=== PATIENT | female | born 2005 | race Caucasian/White ===

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

== ENCOUNTER 2025-05-21 11:41 | Emergency (ER) | payer OTHER, SELFPAY ==
[2025-05-21 11:46] VITALS: BP 118/78; PULSE 93; TEMP 36.8; O2SAT 99; BMI 24.2
[2025-05-21 12:17] LABS: Glucose Urine UA NEGATIVE (NEGATIVE)
[2025-05-21 12:18] LABS: HCG Qualitative Urine* NEGATIVE (NEGATIVE)
--- OUTSIDE RECORDS SUMMARY | 2025-05-21 12:19 | XMS_ITS | CCD ---
Author Organization [facility] CliniSywa Care Team Providers Care Cnc Grinder Name Role Phone PROVIDER, UNKNOWN Unavailable Unavailable PROVIDER, UNKNOWN Unavailable Unavailable PATIENT, SELF Unavailable Unavailable NO FAMILY, PHYSICIAN Primary Care Provider Unava ilDO Juan Daniel Bellamy Attending Provider Lindsey Cates Primary Care Provider CAROLYN Butcher Emergency Provider Gayle King Unavailable TIFFANIE DURBIN Admitting Unavailable TIFFANIE DURBIN Attending Unavailable TIFFANIE DURBIN Consulting Unavailable AICHHOLZ, WINDOW DECORATOR LINDSEY Primary Care Unavailable MENG YBARRA Consulting Unavaila ble AICHHOLZ, WINDOW DECORATOR LINDSEY Primary Care Unavailable AICHHOLZ, WINDOW DECORATOR LINDSEY Admitting Unavailable AICHHOLZ, WINDOW DECORATOR LINDSEY Attending Unavailable AICHHOLZ, WINDOW DECORATOR LINDSEY Consulting Unavailable PAY ., DR SCOTT Admitting Unavailable SHERRILL, DR ALVAREZ Arnold Consulting Unavailable AICHHOLZ, WINDOW DECORATOR LINDSEY Primary Care Unavailable PAY ., DR SCOTT Attending Unavailable PAY ., DR SCOTT Consulting Unavailable KARINA .DENZEL Consulting Unavailable PAY ., DR SCOTT Admitting Unavailable AICHHOLZ, WINDOW DECORATOR LINDSEY Primary Care Unavailable KARINA .DENZEL Consulting Unavailable PAY ., DR SCOTT Attending Unavailable GEORGE HERNÁNDEZ Consulting Unavailable AICHHOLZ, LINDSEY J Primary Care Unavailable EULA MILLARD Attending Unavailable BETH OLIVAS Attending Unavailable BETH OLIVAS Referring Unavailable AICHHOLZ, LINDSEY J Primary Care Unavailable Aichholz, Lindsey J Primary Care Provider [phone] 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[employer] Mitali Reyez Emergency Provider Mitali Lucas Attending Unavailable Mitali Lucas Admitting Unavailable Aichholz, Lindsey J Primary Care Unavailable Medications Current Medications MedicationDrug Class(es)DatesSig (Normalized)Sig (Original)[id number] 200 actuat albuterol 0.09 mg/actuat metered dose inhaler (1 source)beta2-Adrenergic AgonistStart: 37-37-0167Iuwlnolpc Sulfate Active 2 INH INHALATION .every 4 hours prn April 24, 2024 12:00am administer with spaceramoxicillin 875 mg / clavulanate 125 mg oral tablet (4 sources)Penicillin-class AntibacterialStart: 04-07-4475mmxt 1 tablet by mouth every twelve hoursAmoxicillin-Pot Clavulanate 875-125 MG 1 tablet Orally every 12 hrs for 10 day(s) Jul, ActiveStart: 06-05-2017 End: 93-92-3570mzrs 1 tablet by mouth three times dailyAmoxicillin-Pot Clavulanate (Augmentin) 500-125 mg Tablet Discontinued 500 MG PO Three times daily June 05, 2017 1:00am June 19, 2019 10:10pmazithromycin 250 mg oral tablet (1 source)Macrolide AntimicrobialStart: 35-30-6093Vbpabcyqbkih Active 0 PO .COMPLEX 6 April 24, 2024 12:00am take 500 mg today (day 1), then 250 mg for 4 days (days 2-5)Cetirizine (1 source)Histamine-1 Receptor AntagonistZyrTEC ActiveNo Name (No Known Home Meds) (2 sources)Start: 10-48-2602Hg Name (No Known Home Meds) Active April 24, 2020 9:34pmStart: 72-28-9118Bu Name (No Known Home Meds) Active April 23, 2020 11:00pm Completed/Discontinued Medications MedicationDrug Class(es)DatesSig (Normalized)Sig (Original)acetaminophen 21.7 mg/ml / HYDROcodone bitartrate 0.5 mg/ml oral solution (3 sources)Opioid AgonistStart: 06-05-2017 End: 08-48-9620rzmy 1 mL by mouth four times dailyHydrocodone-Acetaminophen (Hycet) 7.5-325 mg/15 mL solution Discontinued 10 ML PO Four times daily 100 June 05, 2017 June 19, 2019 10:10pmibuprofen 600 mg oral tablet (4 sources)Nonsteroidal Anti-inflammatory DrugStart: 06-19-2019 End: 51-51-3627karc 600 mg by mouth every six hoursIbuprofen Discontinued 600 MG PO Q6H June 19, 2019 1:00am April 24, 2020 9:34pmIbuprofen Active Problems Active Problems Problem ClassificationProblemDateDocumented DateEpisodic/ChronicE Codes: Fall (1 source)Fall on same level, unspecified, initial encounter; Translations: [FALL SAME LEVEL UNSPECIFIED INITIAL]Onset: 21-26-5574ChzxveujFkvek of unknown origin (1 source)Fever, unspecified; Translations: [Fever, unspecified]Onset: 38-97-4065FbkgqekeZqvrnkjm of lower limb (4 sources)Fracture of fibula; Translations: [Unspecified fracture of shaft of right fibula, initial encounterfor closed fracture]Onset: EpisodicHeadache; including migraine (3 sources)Headache; including migraine; Translations: [HEADACHE UNSPECIFIED] Onset: 18-75-6038Lrhaw connective tissue disease (1 source)Pain in right hand; Translations: [Pain in right hand]Onset: 23-44-5040AnsphcrtVutwy connective tissue disease (1 source)Hand painOnset: 44-70-6173KsyfmjsiRiezu injuries and conditions due to external causes (1 source)Other specified injuries of head, initial encounter; Translations: [OTH SPEC INJURIES HEAD INITIAL ENC]Onset: 59-24-4519PrttnsyiIguav lower respiratory disease (1 source)Hyperventilation; Translations: [HYPERVENTILATION]Onset: 09-05-2022 EpisodicOther non-traumatic joint disorders (3 sources)Knee joint effusion; Translations: [Effusion, unspecified knee] 09-25-7825FdrlvowgYymrt upper respiratory infections (2 sources)Acute pharyngitis, unspecified; Translations: [Streptococcal pharyngitis]EpisodicPneumonia (except that caused by tuberculosis or sexually transmitted disease) (1 source)Pneumonia; Translations: [Pneumonia, unspecified organism]04-24-2024 EpisodicSuperficial injury; contusion (1 source)Contusion of right knee; Translations: [Contusion of right knee, subsequent encounter]EpisodicSyncope (10 sources)Vasovagal syncope; Translations: [Syncope and collapse]Onset: 841461-74-8540OcgllphaIofdjdirrqee (1 source)right hand injuryOnset: 73-17-7073Wexhsrrwumlt (1 source)Cough, unspecified; Translations: [Cough, unspecified]Onset: 04-24-2024 Past or Other Problems Problem ClassificationProblemDateDocumented DateEpisodic/ChronicAbdominal pain (4 sources)Right lower quadrant pain; Translations: [RIGHT LOWER QUADRANT PAIN] Onset: 48-04-8045WcmzyeuiI Codes: Natural/environment (1 source)Overexertion from prolonged static or awkward postures, initial encounter; Translations: [OVEREXERTPROLNG STAT/AWK PST INIT]Onset: 12-06-2021 EpisodicE Codes: Unspecified (1 source)Activity, basketball; Translations: [ACTIVITY BASKETBALL]Onset: 99-70-6994JzvzkbzbEoysw non-traumatic joint disorders (3 sources)Pain in right ankle and joints of right foot; Translations: [PAIN IN RIGHT ANKLE]Onset: 08-93-3612Tkihyaly Results Test NameValueInterpretationReference RangeFacilityCOVID-19 / Flu A/B / RSV PCR on 22-27-8010ZUSB-CoV-2 (COVID-19) RNA BOBBY+probe Ql (Unsp spec)COVID-19 Cepheid Result Negative for SARS-CoV-2 RNA by RT-PCR Flu A Cepheid Result Negative for Flu A RNA by RT-PCR Flu B Cepheid Result Negative for Flu B RNA by RT-PCR RSV Cepheid Result Negative for RSV RNA by RT-PCR COVID19 Blank Space Reference: Negative COVID19 Blank Space Cepheid Disclaimer The Cepheid Xpert Xpress CoV-2/Flu/RSV Plus has Cepheid Disclaimer not been FDA cleared or approved; this test has Cepheid Disclaimer been authorized by FDA under an EUA for use by Cepheid Disclaimer authorized laboratories; this test has been Cepheid Disclaimer authorized only for the simultaneous qualitative Cepheid Disclaimer detection and differentiation of nucleic acids from Cepheid Disclaimer SARS-CoV-2, influenza A, influenza B, and Cepheid Disclaimer respiratory syncytial virus (RSV), and not for any Cepheid Disclaimer other viruses or pathogens; and this test is only Cepheid Disclaimer authorized for the duration of the declaration that Cepheid Disclaimer circumstances exist justifying the authorization of Cepheid Disclaimer emergency use of in vitro diagnostic tests for Cepheid Disclaimer detection and/or diagnosis of COVID-19 under Cepheid Disclaimer Section 564(b)(1) of the Act, 21 U.S.C. 360bbb- Cepheid Disclaimer 3(b)(1), unless the authorization is terminated or Cepheid Disclaimer revoked sooner. PERFORMED BY: [place] [id number] PATHOLOGIST HEATING TECHNICIAN EVELIA NGUYEN M.D.NormalThe [facility] Physician GroupComment on above:Performed By: #### COVID19 FLU RSV, CEPHEID NEG #### [address] [address] [facility] HOSPITALCepheid COVID PCR Negativeon 40-79-0555EESH-CoV-2 (COVID- 19) RNA BOBBY+probe Ql (Unsp spec)NegativeNormalNegativeThe [facility] Physician GroupComment on above:Result Comment: This is a duplicate Cepheid Xpert Xpress CoV-2/Flu/RSV Plus RNA by RT-PCR result to be used for statistical tracking purpose only. PERFORMED BY: [address] [id number] PATHOLOGIST HEATING TECHNICIAN EVELIA NGUYEN M.D.Performed By: #### COVID19 FLU RSV, CEPHEID NEG #### [address] [address] USAECG 12 lead ECGon 22-32-3636BGI 12 lead ECGTR[facility]ITY [facility] [place] [address] Electrocardiograph Report Signed Patient: Haleigh Son MR#: [id number] : 2005 Acct:[id number] Age/Sex: 19 / F ADM Date: 04/24/24 Loc: ER Room: Type: [facility] ER Attending Dr: Ordering Provider: ADRI Murillo Date of Service: 04/24/2405/08/1737 ECG/ECG 12 lead ECG: Upper Respiratory Infection Copies to: Test Reason : Blood Pressure : 115/71 mmHG Vent. Rate : 91 BPM Atrial Rate : 91 BPM P-R Int : 128 ms QRS Dur : 84 ms QT Int : 362 ms P-R-T Axes : 81 97 73 degrees QTcB Int : 445 ms Normal sinus rhythm Rightward axis Borderline ECG When compared with ECG of 04-Sep-2022 18:57, No significant change was found Confirmed by ADRIAN MCMILLAN DO ([id number]) on 04/24/2024 10:56:37 PM Referred By: Electronically Signed By: ADRIAN MCMILLAN DO Transcribed By: MUS Signed By Adrian Mcmillan DO [address] [place] [address] Physician GroupXR chest 2V*on 04-02-8049OP chest 2V* [facility] [address] [place] [id number] XRay Report Signed Patient: Haleigh Son MR#: [id number] : 2005 Acct:[id number] Age/Sex: 19 / F ADM Date: 04/24/24 Loc: ER Room: Type: [facility] ER Attending Dr: Copies to: ADRI Murillo Ordering Provider: ADRI Murillo Date of Service: 04/24/24 XR/XR chest 2V*: Upper Respiratory Infection XR chest 2V* 04/24/2024 5:43 PM SIGNS AND SYMPTOMS: Chest tightness, upper respiratory tract infection PROTOCOL: Frontal and lateral radiograph of the chest COMPARISON: None FINDINGS: The trachea is midline. The heart and mediastinal structures are within normal limits. Airspace opacity is noted in the left upper chest suggesting pneumonia. The bony thorax is intact. XR/XR chest 2V* IMPRESSION: Airspace opacity is noted in the left upper chest suggesting pneumonia. Impression dictated by: Alexey Reyes M.D.04/24/2024 6:18 PM Dictation Location: [facility]--13 Transcribed By: KE 04/24/241817 Dictated By: Alexey Reyes II, MD 04/24/241816 Signed By: 04/24/241817[facility] Physician GroupXR HAND RT MIN 3 VWSon 34-52-6269KC HAND RT MIN 3 VWSXR HAND RT MIN 3 VWS XR HAND RT MIN 3 VWS HISTORY: Pain over the palm, caught baseball without mitt. COMPARISON: None FINDINGS/IMPRESSION: PA, oblique, lateral views obtained. * No acute fracture or dislocation. Approved by Resident Quintin Sanchez MD on 11/28/2023 10:08 PM I, Ole Christianson MD have personally reviewed the image(s) and agree with and/or edited the report Finalized by Ole Christianson MD on 11/28/2023 10:21 PMNormalProMatagorda Regional Medical CenterGlucose Glucometer (BldC) [Mass/Vol]Ordered By: PROVIDER TEMP on 27-95-6547Owrzxkr [Mass/Vol]82 mg/dLMemorial Health SystemComment on above:Random Glucose Reference Range is dependent on time and content of last meal. Glucose of more than 200 mg/dL in a nonstressed, ambulatory subject supports the diagnosis of Diabetes Mellitus.CBC AUTO DIFFon 25-17-4854WZGS #0.0 103/ulNormal0.0-0.1The [facility] CenterComment on above:Performed By: #### FT3, TSH, CMP #### [facility] [address] [place] [address] [address] Emilia Hestersophils/100 WBC (Bld)0.2 %Normal0.2-2.0The [facility] Comment on above:Performed By: #### FT3, TSH, CMP #### [facility] [address] [place] [address] Dr. Emilia Dupree #0.1 103/ulNormal0.0-0.7The [facility] CenterComment on above: Performed By: #### FT3, TSH, CMP #### [facility] [address] [place] [address] Dr. Emilia Mortonosinophils/100 WBC (Bld)2.1 %Normal0.9-7.0The [facility] Comment on above:Performed By: #### FT3, TSH, CMP #### [facility] [address] [place] [address] Dr. Emilia Mortonrythrocyte distribution width (RBC) [Ratio]12.7 %Iughou98.0-15.0 The [facility] Medical CenterComment on above:Performed By: #### FT3, TSH, CMP #### [facility] [address] [place] [address] Dr. Emilia MtzHematocrit (Bld) [Volume fraction]36.6 %Jwybrx66.0-48.0The [facility] CenterComment on above:Performed By: #### FT3, TSH, CMP #### [facility] [address] [place] [address] Dr. Emilia MtzHemoglobin (Bld) [Mass/Vol]12.3 g/xLBjojbu52.0-16.0The [facility] CenterComment on above:Performed By: #### FT3, TSH, CMP #### [facility] [address] [place] [address] Dr. Emilia Draper #0.01 10e3/ulNormal0.00-0.03The [facility] CenterComment on above:Performed By: #### FT3, TSH, CMP #### [facility] [address] [place] [address] Dr. Emilia MtzIG %0.2 %Normal0.0-0.5The [facility] CenterComment on above: Performed By: #### FT3, TSH, CMP #### [facility] [address] [place] [address] Dr. Emilia Canales #2.1 103/ulNormal1.2-3.8The [facility] CenterComment on above:Performed By: #### FT3, TSH, CMP #### [facility] [address] [place] [address] Dr. Emilia Aguillonhocytes/100 WBC (Bld)37.1 %Ouljrl81.5-60.0The [facility] CenterComment on above:Performed By: #### FT3, TSH, CMP #### [facility] [address] [place] [address] Dr. Emilia Orr DIFF REQNONormalThe [facility] CenterComment on above: Performed By: #### FT3, TSH, CMP #### [facility] [address] [place] [address] Dr. Emilia Hernandez (RBC) [Entitic mass]29.4 teTkkgxl35.7-34.0The [facility] CenterComment on above:Performed By: #### FT3, TSH, CMP #### [facility] [address] [place] [address] Dr. Emilia Thacker (RBC) [Mass/Vol]33.6 g/aXJxuklr18.9-35.2The [facility] Hospitalment on above:Performed By: #### FT3, TSH, CMP #### [facility] [address] [place] [address] Dr. Emilia Thacker (RBC) [Entitic vol]87.6 bCGpspcx08.1-95.6The [facility] CenterComment on above:Performed By: #### FT3, TSH, CMP #### [facility] [address] [place] [address] Dr. Emilia Plata #0.4 103/ulNormal0.3-0.8The [facility] CenterComment on above:Performed By: #### FT3, TSH, CMP #### [facility] [address] [place] [address] Dr. Emilia Tangocytes/100 WBC (Bld)6.1 %Normal1.7-12.0The [facility] Comment on above:Performed By: #### FT3, TSH, CMP #### [facility] [address] [place] [address] Dr. Emilia LincolnUT #3.1 103/ulNormal1.4-6.5The [facility] CenterComment on above:Performed By: #### FT3, TSH, CMP #### [facility] [address] [place] [address] Dr. Emilia Lincolnutrophils/100 WBC (Bld)54.3 %Jzzujc41.0-75.0The [facility] CenterComment on above:Performed By: #### FT3, TSH, CMP #### [facility] [address] [place] [address] Dr. Emilia MtzPlatelet mean volume (Bld) [Entitic vol]11.6 fLNormal9.5-13.5The [facility] CenterComment on above:Performed By: #### FT3, TSH, CMP #### [facility] [address] [place] [address] Dr. Emilia MtzPLT246 103/uwKhbick013-837Qnf [facility] CenterComment on above: Performed By: #### FT3, TSH, CMP #### [facility] [address] [place] [address] Dr. Emilia MtzRBC4.18 106/ulNormal3.40-5.30The [facility] CenterComment on above:Performed By: #### FT3, TSH, CMP #### [facility] [address] [place] [address] Dr. Emilia MtzWBC5.7 103/ulNormal4.0-11.0The [facility] CenterComment on above: Performed By: #### FT3, TSH, CMP #### [facility] [address] [place] [address] Dr. Emilia MtzCT HEAD WO CONon 63-17-2659PX HEAD WO CONEXAMINATION: CT HEAD WO CON HISTORY: Syncopal episode after dragging left leg, headache COMPARISON: None. TECHNIQUE: CT examination of the head without IV contrast. Dose reduction techniques were achieved by using automated exposure control and/or adjustment of mA and/or kV according to patient size and/or use of iterative reconstruction technique. FINDINGS: Calvarium/skull base: No evidence of acute fracture or destructive lesion. Mastoids and middle ears demonstrate no substantial mucosal disease. Paranasal sinuses: No air fluid levels. Brain: No acute intracranial hemorrhage. No acute large vascular territory infarct. No mass lesion or mass effect. No hydrocephalus. IMPRESSION: No acute intracranial process. Electronically authenticated by: MENG YBARRA Date: 2022-09-03 11:37 NormalSelect [facility] URINE PROFILEon 25-39-3662Biaopzcwq Ql (U)Negative NormalNEGATIVEVan Wert County HospitalComment on above:Performed By: #### FT3, TSH, CMP #### [facility] [address] [place] [address] Dr. Emilia MtzClarity (U)CLEARNormalCLEARVan Wert County HospitalComment on above: Performed By: #### FT3, TSH, CMP #### [facility] [address] [place] [address] Dr. Emilia Damon (U)LT. YELLOWNormalYELLOWVan Wert County HospitalComment on above:Performed By: #### FT3, TSH, CMP #### [facility] [address] [place] [address] Dr. Emilia Spivey micrscopic examination will be performed if indicated. NormalVan Wert County HospitalComment on above:Performed By: #### FT3, TSH, CMP #### [facility] [address] [place] [address] [address] Emilia MtzGlucose Ql (U)NegativeNormalNEGATIVEVan Wert County HospitalComment on above:Performed By: #### FT3, TSH, CMP #### [facility] [address] [place] [address] [address] Emilia MtzHemoglobin Ql (U)NegativeNormalNEGATIVEVan Wert County Hospital Comment on above:Performed By: #### FT3, TSH, CMP #### [facility] [address] [place] [address] [address] Emilia Houston Ql (U)NegativeNormalNEGATIVEThe [facility] CenterComment on above:Performed By: #### FT3, TSH, CMP #### [facility] [address] [place] [address] [address] Emilia MtzLEUKOCYTESNegativeNormalNEGATIVEVan Wert County HospitalComment on above:Performed By: #### FT3, TSH, CMP #### [facility] [address] [place] [address] Dr. Emilia Heathtrkonrad Ql (U)NegativeNormalNEGATIVEThe [facility] CenterComment on above:Performed By: #### FT3, TSH, CMP #### [facility] [address] [place] [address] Dr. Emilia MtzpH (U)5.5 [pH]Normal5-9The [facility] CenterComment on above: Performed By: #### FT3, TSH, CMP #### [facility] [address] [place] [address] Dr. Emilia MtzSPEC GRAVITY>=1.740Ftxyxtds7.005-<=1.025The [facility] Comment on above:Performed By: #### FT3, TSH, CMP #### [facility] [address] [place] [address] Dr. Emilia Mccallum PROTEINNegativeNormalNEGATIVE/ TRACEThe [facility] Comment on above:Performed By: #### FT3, TSH, CMP #### [facility] [address] [place] [address] Dr. Emilia Frye MICRO INDNOT INDICATEDNoOhioHealth Riverside Methodist Hospitale [facility] CenterComment on above:Performed By: #### FT3, TSH, CMP #### [facility] [address] [place] [address] Dr. Emilia Raygoza Qn (U)0.2 {[place]'U}/dLNormal0.2 - 1.0The [facility] CenterComment on above:Performed By: #### FT3, TSH, CMP #### [facility] [address] [address] [address] Emilia MtzPREGNANCY URon 89-92-5361CTPTGIIGQ, QUALNegativeNormalNEGATIVEThe [facility] CenterComment on above:Performed By: #### FT3, TSH, CMP #### [facility] [address] [place] [address] [address] Emilia MtzPROF 14(COMP METB)on 99-22-2987Bkjcygb [Mass/Vol]3.9 g/dLNormal 3.4-5.0The [facility] CenterComment on above:Performed By: #### CMP #### [facility] [address] [place] [address] Dr. Emilia MtzAlbumin/Globulin [Mass ratio]1.1 {ratio}NormalThe [facility] CenterComment on above:Performed By: #### CMP #### [facility] [address] [place] [address] Dr. Emilia CheP [Catalytic activity/Vol]66 U/VRcszoe65-630Xyx [facility] CenterComment on above:Performed By: #### CMP #### [facility] [address] [place] [address] Dr. Emilia CheT [Catalytic activity/Vol]14 U/BWxnthk47-31Cts [facility] CenterComment on above:Performed By: #### CMP #### [facility] [address] [place] [address] Dr. Emilia Bal gap [Moles/Vol]10.9 mmol/LNormalThe [facility] Comment on above:Performed By: #### CMP #### [facility] [address] [place] [address] Dr. Emilia MtzAST [Catalytic activity/Vol]14 U/LCritically hsk76-74Wpz [facility] CenterComment on above:Performed By: #### CMP #### [facility] [address] [place] [address] Dr. Emilia MtzBilirubin [Mass/Vol]0.4 mg/dLNormal0.2-1.0The [facility] Comment on above:Performed By: #### CMP #### [facility] [address] [address] [address] Emilia MtzCalcium [Mass/Vol]9.4 mg/dLNormal8.5-10.1The [facility] Comment on above:Performed By: #### CMP #### [facility] [address] [address] [address] Emilia MtzChloride [Moles/Vol]107 mmol/VGsaxmd79-693Qxp [facility] Comment on above:Performed By: #### CMP #### [facility] [address] [address] [address] Emilia MtzCO2 [Moles/Vol]26.2 mmol/GQvtzpi89.0-32.0The [facility] Comment on above:Performed By: #### CMP #### [facility] [address] [place] [address] Dr. Emilia MtzCreatinine [Mass/Vol]0.71 mg/dLNormal0.55-1.02The [facility] CenterComment on above:Performed By: #### CMP #### [facility] [address] [address] [address] Emilia MortonGFR-AF CAMEROONIAN>60Normal>=60The [facility] CenterComment on above:Performed By: #### CMP #### [facility] [address] [address] [address] Emilia MortonGFR-NON AF CAMEROONIAN>60Normal>=60The [facility] CenterComment on above:Performed By: #### CMP #### [facility] [address] [address] [address] Emilia MtzGlobulin (S) [Mass/Vol]3.5 g/dLNormalThe [facility] CenterComment on above:Performed By: #### CMP #### [facility] [address] [address] [address] Emilia MtzGlucose [Mass/Vol]103 mg/jRTrctac99-530Iqs [facility] Comment on above:Performed By: #### CMP #### [facility] [address] [address] [address] Emilia MtzPotassium [Moles/Vol]4.1 mmol/LNormal3.5-5.1The [facility] Comment on above:Performed By: #### CMP #### [facility] [address] [address] [address] Emilia MtzProtein [Mass/Vol]7.4 g/dLNormal6.4-8.2The [facility] Comment on above:Performed By: #### CMP #### [facility] [address] [address] [address] Emilia MtzSodium [Moles/Vol]140 mmol/VOspwqo366-499Wqu [facility] Comment on above:Performed By: #### CMP #### [facility] Laboratory [address] [address] [address] Emilia MtzUrea nitrogen [Mass/Vol]15.0 mg/dLNormal6.4-19.3The [facility] CenterComment on above:Performed By: #### CMP #### [facility] [address] [address] [address] Emilia Duran nitrogen/Creatinine [Mass ratio]21.1 mg/mgNoalThMetroHealth Parma Medical CenterComment on above:Performed By: #### CMP #### [facility] Laboratory [address] [address] [address] Emilia Barber Strepon 08-15-2022S. pyogenes Org specific cx Ql (Throat) [facility]Con[facility] Other Quick StrepAthens dineout Other cbc AUTO DIFFon 20-20-7476ZNTA #0.0 103/ulNormal 0.0-0.1The [facility] CenterComment on above:Performed By: #### CBC #### [facility] Laboratory [address] [address] [address] Emilia MtzBasophils/100 WBC (Bld)0.2 %Normal0.2-2.0The [facility] Comment on above:Performed By: #### CBC #### [facility] Laboratory [address] [address] [address] Emilia Dupree #0.2 103/ulNormal0.0-0.7The [facility] CenterComment on above: Performed By: #### CBC #### [facility] Laboratory [address] [place] [address] Dr. Emilia Mortonosinophils/100 WBC (Bld)1.6 %Normal0.9-7.0The [facility] Comment on above:Performed By: #### CBC #### [facility] Laboratory [address] [place] [address] Dr. Emilia Mortonrythrocyte distribution width (RBC) [Ratio]12.6 %Fvgued36.0-15.0 The [facility] Hospitalment on above:Performed By: #### CBC #### [facility] Laboratory [address] [place] [address] Dr. Emilia MtzHematocrit (Bld) [Volume fraction]36.1 %Tcelnx34.0-48.0The [facility] CenterComment on above:Performed By: #### CBC #### [facility] Laboratory [address] [place] [address] Dr. Emilia MtzHemoglobin (Bld) [Mass/Vol]12.3 g/cTQsrbwo43.0-16.0The [facility] Hospitalment on above:Performed By: #### CBC #### [facility] Laboratory [address] [place] [address] Dr. Emilia Draper #0.03 10e3/ulNormal0.00-0.03The [facility] CenterComment on above:Performed By: #### CBC #### [facility] Laboratory [address] [place] [address] Dr. Emilia Draper %0.3 %Normal0.0-0.5The [facility] Hospitalment on above: Performed By: #### CBC #### [facility] Laboratory [address] [place] [address] Dr. Emilia Canales #1.8 103/ulNormal1.2-3.8The [facility] CenterComment on above:Performed By: #### CBC #### [facility] Laboratory [address] [address] [address] Emilia Kamaramphocytes/100 WBC (Bld)19.3 %Critically low20.5-60.0The [facility] CenterComment on above:Performed By: #### CBC #### [facility] Laboratory [address] [address] [address] Emilia Orr DIFF REQNONormalThe [facility] CenterComment on above: Performed By: #### CBC #### [facility] Laboratory [address] [address] [address] Emilia Thacker (RBC) [Entitic mass]29.2 qwAhycgv67.7-34.0The [facility] CenterComment on above:Performed By: #### CBC #### [facility] Laboratory [address] [place] [address] Dr. Emilia Thacker (RBC) [Mass/Vol]34.1 g/zBEdbzsf81.9-35.2The [facility] CenterComment on above:Performed By: #### CBC #### [facility] Laboratory [address] [place] [address] Dr. Emilia Thacker (RBC) [Entitic vol]85.7 dYWdncit85.1-95.6The [facility] CenterComment on above:Performed By: #### CBC #### [facility] Laboratory [address] [place] [address] Dr. Emilia Plata #0.5 103/ulNormal0.3-0.8The [facility] Hospitalment on above:Performed By: #### CBC #### [facility] Laboratory [address] [place] [address] Dr. Emilia Tangocytes/100 WBC (Bld)5.0 %Normal1.7-12.0The [facility] on above:Performed By: #### CBC #### [facility] Laboratory [address] [place] [address] Dr. Emilia Juarez #6.9 103/ulCritically high1.4-6.5The [facility] Comment on above:Performed By: #### CBC #### [facility] Laboratory [address] [place] [address] Dr. Emilia Lincolnutrophils/100 WBC (Bld)73.6 %Pkcbiu48.0-75.0The [facility] CenterComment on above:Performed By: #### CBC #### [facility] Laboratory [address] [place] [address] Dr. Emilia MtzPlatelet mean volume (Bld) [Entitic vol]10.9 fLNormal9.5-13.5The [facility] CenterComment on above:Performed By: #### CBC #### [facility] Laboratory [address] [place] [address] Dr. Emilia MtzPLT257 103/geZaxesk032-920Yvk [facility] CenterComment on above: Performed By: #### CBC #### [facility] Laboratory [address] [place] [address] Dr. Emilia MtzRBC4.21 106/ulNormal3.40-5.30The [facility] CenterComment on above:Performed By: #### CBC #### [facility] Laboratory [address] [place] [address] Dr. Emilia MtzWBC9.4 103/ulNormal4.0-11.0The [facility] CenterComment on above: Performed By: #### CBC #### [facility] Laboratory [address] [place] [address] Dr. Emilia Archer T3on 15-47-2046YPNH T32.43 pg/mlLCritically low2.91-4.70The [facility] CenterComment on above:Performed By: #### FT3, TSH, CMP #### [facility] Laboratory [address] [place] [address] Dr. Emilia Archer T4on 65-55-7880Qqtc T4 [Mass/Vol]1.07 ng/dLNormal0.78-1.34 The [facility] CenterComment on above:Performed By: #### IRON, FT4 #### [facility] Laboratory [address] [place] [address] Dr. Emilia Leone 66-24-9387Tsgq [Mass/Vol]58.0 ug/lGXuokiu63.0-170.0The [facility] CenterComment on above:Performed By: #### IRON, FT4 #### [facility] Laboratory [address] [place] [address] Dr. Emilia Arteaga HCG QUALon 21-17-9972ZZOXZWVLC, QUALNegativeNormalNEGATIVE The [facility] CenterComment on above:Performed By: #### FT3, TSH, CMP #### [facility] Laboratory [address] [place] [address] Dr. Emilia MtzPROF 14(COMP METB)on 00-41-7614Ezenhvi [Mass/Vol]3.8 g/dLNormal 3.4-5.0The [facility] CenterComment on above:Performed By: #### FT3, TSH, CMP #### [facility] Laboratory [address] [place] [address] Dr. Emilia MtzAlbumin/Globulin [Mass ratio]1.1 {ratio}NormalThe [facility] CenterComment on above:Performed By: #### FT3, TSH, CMP #### [facility] Laboratory [address] [place] [address] Dr. Emilia Daigle [Catalytic activity/Vol]79 U/CVjuveq20-361Glu [facility] CenterComment on above:Performed By: #### FT3, TSH, CMP #### [facility] Laboratory [address] [place] [address] Dr. Emilia Ortiz [Catalytic activity/Vol]14 U/IXtnmyr93-78Stu [facility] CenterComment on above:Performed By: #### FT3, TSH, CMP #### [facility] Laboratory [address] [place] [address] Dr. Emilia Bal gap [Moles/Vol]11.7 mmol/LNormalThe [facility] on above:Performed By: #### FT3, TSH, CMP #### [facility] Laboratory [address] [place] [address] Dr. Yilan ChangAST [Catalytic activity/Vol]15 U/CYliyvf66-47DbkVan Wert County HospitalComment on above:Performed By: #### FT3, TSH, CMP #### [facility] Laboratory [address] [place] [address] Dr. Emilia MtzBilirubin [Mass/Vol]0.3 mg/dLNormal0.2-1.0[facility] Comment on above:Performed By: #### FT3, TSH, CMP #### [facility] [address] [place] [address] Dr. Emilia MtzCalcium [Mass/Vol]9.4 mg/dLNormal8.5-10.1[facility] Comment on above:Performed By: #### FT3, TSH, CMP #### [facility] [address] [place] [address] Dr. Emilia MtzChloride [Moles/Vol]104 mmol/QSykpcs69-626XogVan Wert County Hospital Comment on above:Performed By: #### FT3, TSH, CMP #### [facility] [address] [place] [address] Dr. Emilia MtzCO2 [Moles/Vol]27.2 mmol/FZntqix54.0-32.0[facility] Comment on above:Performed By: #### FT3, TSH, CMP #### [facility] Laboratory [address] [place] [address] Dr. Emilia MtzCreatinine [Mass/Vol]0.58 mg/dLNormal0.55-1.02[facility] HospitalComment on above:Performed By: #### FT3, TSH, CMP #### [facility] Laboratory [address] [place] [address] Dr. Emliia MtzGlobulin (S) [Mass/Vol]3.4 g/dLNormalThe [facility] CenterComment on above:Performed By: #### FT3, TSH, CMP #### [facility] Laboratory [address] [place] [address] Dr. Emilia MtzGlucose [Mass/Vol]86 mg/wRPyrrvt06-193AxeVan Wert County Hospital Comment on above:Performed By: #### FT3, TSH, CMP #### [facility] Laboratory [address] [place] [address] Dr. Emilia MztPotassium [Moles/Vol]3.9 mmol/LNormal3.5-5.1The [facility] Comment on above:Performed By: #### FT3, TSH, CMP #### [facility] Laboratory [address] [place] [address] Dr. Emilia MtzProtein [Mass/Vol]7.2 g/dLNormal6.4-8.2The [facility] Comment on above:Performed By: #### FT3, TSH, CMP #### [facility] Laboratory [address] [place] [address] Dr. Emilia MtzSodium [Moles/Vol]139 mmol/KRtdife812-444Kku [facility] Comment on above:Performed By: #### FT3, TSH, CMP #### [facility] Laboratory [address] [place] [address] Dr. Emilia MtzUrea nitrogen [Mass/Vol]13.0 mg/dLNormal6.4-19.3The [facility] CenterComment on above:Performed By: #### FT3, TSH, CMP #### [facility] Laboratory [address] [place] [address] Dr. Emilia Duran nitrogen/Creatinine [Mass ratio]22.4 mg/mgNormalThe [facility] CenterComment on above:Performed By: #### FT3, TSH, CMP #### [facility] Laboratory [address] [place] [address] Dr. Emilia Gordon 22-70-3283ZDC7.840 uIU/mLNormal0.516-4.130The [facility] CenterComment on above:Performed By: #### FT3, TSH, CMP #### [facility] Laboratory [address] [place] [address] Dr. Emilia Mccallum RANDOM W/MICROSCOPICon 57-01-3807ONOWHJMEOVLVLRxieyfnoSCKT SEENThe [facility] CenterComment on above:Performed By: #### FT3, TSH, CMP #### [facility] Laboratory [address] [address] [address] Emilia MtzBilirubin Ql (U)NegativeNormalNEGATIVEUniversity Hospitals Tripoint [facility] on above:Performed By: #### FT3, TSH, CMP #### [facility] Laboratory [address] [address] [address] Emilia MtzCASTNONAissatou SEENNormalNONE SEENVan Wert County HospitalComment on above:Performed By: #### FT3, TSH, CMP #### [facility] Laboratory [address] [address] [address] Emilia MtzClarity (U)CLEARNormalCLEARVan Wert County HospitalComment on above: Performed By: #### FT3, TSH, CMP #### [facility] Laboratory [address] [place] [address] Dr. Emilia Loaizalor (U)LT. YELLOWNormalYELLOWVan Wert County HospitalComment on above:Performed By: #### FT3, TSH, CMP #### [facility] Laboratory [address] [address] [address] Emilia MtzCrystals LM Nom (Urine sed)NONE SEENNormalNONE SEENVan Wert County HospitalComment on above:Performed By: #### FT3, TSH, CMP #### [facility] Laboratory [address] [place] [address] Dr. Nieto ChangEpithelial cells LM Ql (Urine sed)FEWAbnormalNONE SEEN /RAREThe [facility] CenterComment on above:Performed By: #### FT3, TSH, CMP #### [facility] Laboratory [address] [place] [address] Dr. Emilia MtzGlucose Ql (U)NegativeNormalNEGATIVEVan Wert County HospitalComment on above:Performed By: #### FT3, TSH, CMP #### [facility] Laboratory [address] [place] [address] Dr. Emilia MtzHemoglobin Ql (U)TRACE-INTACTAbnormalNEGATIVEVan Wert County HospitalComment on above:Performed By: #### FT3, TSH, CMP #### [facility] [address] [place] [address] Dr. Emilia Houston Ql (U)NegativeNormalNEGATIVEVan Wert County HospitalComment on above:Performed By: #### FT3, TSH, CMP #### [facility] Laboratory [address] [address] [address] Emilia MtzLEUKOCYTESNegativeNormalNEGATIVEThe [facility] CenterComment on above:Performed By: #### FT3, TSH, CMP #### [facility] Laboratory [address] [address] [address] Emilia HajiCOUSTRACEAbnormalNONE SEENThe [facility] CenterComment on above:Performed By: #### FT3, TSH, CMP #### [facility] Laboratory [address] [place] [address] Dr. Emilia Lema Ql (U)NegativeNormalNEGATIVEVan Wert County HospitalComment on above:Performed By: #### FT3, TSH, CMP #### [facility] [address] [place] [address] Dr. Emilia MtzpH (U)7.0 [pH]Normal5-9The [facility] CenterComment on above: Performed By: #### FT3, TSH, CMP #### [facility] Laboratory [address] [place] [address] Dr. Emilia MtzTbxlhKRY3-6Thymgy6-1[facility] on above:Performed By: #### FT3, TSH, CMP #### [facility] Laboratory [address] [place] [address] Dr. Emilia MtzSPEC GRAVITY1.633Qzehwh4.005-<=1.025[facility] on above:Performed By: #### FT3, TSH, CMP #### [facility] Laboratory [address] [address] [address] Emilia Mccallum PROTEINNegativeNormalNEGATIVE/ TRACEThe [facility] on above:Performed By: #### FT3, TSH, CMP #### [facility] Laboratory [address] [place] [address] Dr. Emilia Sanfordbilaster Qn (U)0.2 {Cuba'U}/dLNormal0.2 - 1.0The [facility] CenterComment on above:Performed By: #### FT3, TSH, CMP #### [facility] Laboratory [address] [place] [address] Dr. Emilia MtzWBCNONE SEENNormalNONE SEENThe [facility] CenterComment on above: Performed By: #### FT3, TSH, CMP #### [facility] Laboratory [address] [place] [address] Dr. Emilia Rosa AUTO DIFFon 69-48-6661RBMM #0.0 103/ulNormal0.0-0.1The [facility] CenterComment on above:Performed By: #### CBC #### [facility] Laboratory [address] [place] [address] Dr. Emilia MtzBasophils/100 WBC (Bld)0.4 %Normal0.2-2.0The [facility] Comment on above:Performed By: #### CBC #### [facility] Laboratory [address] [place] [address] Dr. Emilia Dupree #0.1 103/ulNormal0.0-0.7The [facility] CenterComtrinity [facility] on above: Performed By: #### CBC #### [facility] Laboratory [address] [place] [address] Dr. Emilia Mortonosinophils/100 WBC (Bld)1.7 %Normal0.9-7.0The [facility] Comment on above:Performed By: #### CBC #### [facility] Laboratory [address] [place] [address] Dr. Emilia Mortonrythrocyte distribution width (RBC) [Ratio]13.0 %Upqnrn16.0-15.0 The [facility] CenterComment on above:Performed By: #### CBC #### [facility] Laboratory [address] [place] [address] Dr. Emilia MtzHematocrit (Bld) [Volume fraction]38.1 %Jogtpi65.0-48.0The [facility] CenterComment on above:Performed By: #### CBC #### [facility] [address] [place] [address] Dr. Emilia MtzHemoglobin (Bld) [Mass/Vol]12.8 g/yPPcwvgd25.0-16.0The [facility] CenterComment on above:Performed By: #### CBC #### [facility] [address] [place] [address] Dr. Emilia Draper #0.02 10e3/ulNormal0.00-0.03The [facility] CenterComment on above:Performed By: #### CBC #### [facility] [address] [place] [address] Dr. Emilia Draper %0.2 %Normal0.0-0.5The [facility] CenterComment on above: Performed By: #### CBC #### [facility] [address] [place] [address] Dr. Emilia Canales #2.5 103/ulNormal1.2-3.8The [facility] CenterComment on above:Performed By: #### CBC #### [facility] Laboratory [address] [place] [address] Dr. Emilia Aguillonhocytes/100 WBC (Bld)30.2 %Ijabdg03.5-60.0The [facility] CenterComtrinity health [facility] on above:Performed By: #### CBC #### [facility] Laboratory [address] [place] [address] Dr. Emilia ScottUAL DIFF REQNONormalThe [facility] CenterComment on above: Performed By: #### CBC #### [facility] Laboratory [address] [place] [address] Dr. Emilia Thacker (RBC) [Entitic mass]29.3 muQoazez81.7-34.0The [facility] CenterComment on above:Performed By: #### CBC #### [facility] Laboratory [address] [place] [address] Dr. Emilia Thacker (RBC) [Mass/Vol]33.6 g/yWNiguob04.9-35.2The [facility] CenterComment on above:Performed By: #### CBC #### [facility] Laboratory [address] [place] [address] Dr. Emilia ThackerV (RBC) [Entitic vol]87.2 tRThlhae14.1-95.6The [facility] CenterComment on above:Performed By: #### CBC #### [facility] [address] [place] [address] Dr. Emilia Plata #0.5 103/ulNormal0.3-0.8The [facility] CenterComment on above:Performed By: #### CBC #### [facility] [address] [place] [address] Dr. Emilia Tangocytes/100 WBC (Bld)5.6 %Normal1.7-12.0The [facility] Comment on above:Performed By: #### CBC #### [facility] [address] [place] [address] Dr. Emilia Juarez #5.1 103/ulNormal1.4-6.5The [facility] CenterComment on above:Performed By: #### CBC #### [facility] [address] [place] [address] Dr. Emilia Lincolnutrophils/100 WBC (Bld)61.9 %Fkoycr16.0-75.0The [facility] CenterComment on above:Performed By: #### CBC #### [facility] [address] [place] [address] Dr. Emilia Griffinlet mean volume (Bld) [Entitic vol]12.0 fLNormal9.5-13.5The [facility] CenterComment on above:Performed By: #### CBC #### [facility] [address] [place] [address] Dr. Emilia MtzPLT251 103/bjIxegfr243-828Gcs [facility] CenterComment on above: Performed By: #### CBC #### [facility] [address] [place] [address] Dr. Emilia MtzRBC4.37 106/ulNormal3.40-5.30The [facility] CenterComment on above:Performed By: #### CBC #### [facility] Laboratory [address] [address] [address] Emilia MtzWBC8.2 103/ulNormal4.0-11.0The [facility] Hospitalment on above: Performed By: #### CBC #### [facility] [address] [place] [address] Dr. Emilia MtzCT ABD/PELVIS WO CONon 31-54-6967VZ ABD/PELVIS WO CONEXAMINATION: CT ABD/PELVIS WO CON, 03/21/2022 2:00 PM EDT HISTORY: UNSPECIFIED ABDOMINAL PAIN COMPARISON: None. TECHNIQUE: CT scan of the abdomen and pelvis was performed without IV contrast. CT dose reduction technique was used, including Automated Exposure Control. FINDINGS: LUNG BASES: No visible pulmonary or pleural disease. LIVER: No enlargement, atrophy, abnormal density, or significant focal lesion. BILIARY: No dilatation or calcification. PANCREAS: No lesion, fluid collection, ductal dilatation, or atrophy. SPLEEN: No enlargement or focal lesion. ADRENALS: No mass or enlargement. KIDNEYS: No mass, obstruction, or calcification. BOWEL/MESENTERY: No visible mass, obstruction, or bowel wall thickening. AORTA/VASCULAR: No aneurysm or dissection. RETROPERITONEUM: No mass or adenopathy. LYMPH NODES: No adenopathy. URINARY BLADDER: No visible focal wall thickening, lesion, or calculus. PELVIC ORGANS: No visible mass. Pelvic organs appropriate for patient age. ABDOMINAL WALL: No mass or hernia. BONES: No bony lesion or fracture. OTHER: Negative. IMPRESSION: No obstructive uropathy Electronically authenticated by: ALVAREZ GIL Date: 2022-03-21 14:32NormCleveland Clinic Foundation URINE PROFILEon 49-53-8943Cujlwndkk Ql (U)NegativeNormal NEGATIVEThe [facility] on above:Performed By: #### ERUR #### [facility] [address] [place] [address] Dr. Emilia Roblero (U)CLEARNormalCLEARThe [facility] on above: Performed By: #### ERUR #### [facility] [address] [place] [address] Dr. Emilia Damon (U)YELLOWNormalYELLOWThe [facility] CenterComment on above: Performed By: #### ERUR #### [facility] [address] [address] [address] Emilia Spivey micrscopic examination will be performed if indicated. NormalVan Wert County HospitalComment on above:Performed By: #### ERUR #### [facility] [address] [place] [address] Dr. Emilia MtzGlucose Ql (U)NegativeNormalNEGATIVEVan Wert County HospitalComment on above:Performed By: #### ERUR #### [facility] [address] [place] [address] Dr. Emilia MtzHemoglobin Ql (U)NegativeNormalNEGAultman Orrville Hospital Comment on above:Performed By: #### ERUR #### [facility] [address] [place] [address] Dr. Emilia MtzKetones Ql (U)TRACEAbnormalNEGATIVEVan Wert County HospitalComment on above:Performed By: #### ERUR #### [facility] [address] [place] [address] Dr. Emilia MtzLEUKOCYTESNegativeNormalNEGATIVEVan Wert County HospitalComment on above:Performed By: #### ERUR #### [facility] [address] [place] [address] Dr. Emilia MtzNitrite Ql (U)NegativeNormalNEGATIVEVan Wert County HospitalComment on above:Performed By: #### ERUR #### [facility] [address] [place] [address] Dr. Emilia MtzpH (U)5.5 [pH]Normal5-9Van [facility] HospitalComment on above: Performed By: #### ERUR #### [facility] [address] [place] [address] Dr. Emilia MtzSPEC GRAVITY>=1.750Zynqqevh8.005-<=1.025[facility] Comment on above:Performed By: #### ERUR #### [facility] [address] [place] [address] Dr. Emilia MtzUA PROTEINNegativeNormalNEGATIVE/ TRACEThe [facility] Comment on above:Performed By: #### ERUR #### [facility] [address] [place] [address] Dr. Emilia Frye MICRO INDNOT INDICATEDNormalThe [facility] CenterComment on above:Performed By: #### ERUR #### [facility] [address] [place] [address] Dr. Emilia MtzUrobilinogen Qn (U)0.2 {Cuba'U}/dLNormal0.2 - 1.0The [facility] CenterComment on above:Performed By: #### ERUR #### [facility] [address] [place] [address] Dr. Emilia MtzLACTATE/LACTIC ACIDon 33-28-1898Vjdvqgk [Moles/Vol]0.8 mmol/L Normal0.4-1.9The [facility] CenterComment on above:Performed By: #### FT3, TSH, CMP #### [facility] [address] [place] [address] Dr. Emilia MtzLIPASEon 27-87-2440Maqeof [Catalytic activity/Vol]114.0 U/LNormal 73.0-393.0The [facility] CenterComment on above:Performed By: #### FT3, TSH, CMP #### [facility] [address] [place] [address] Dr. Emilia MtzPROF 14(COMP METB)on 02-46-1482Hyhreot [Mass/Vol]4.0 g/dLNormal 3.4-5.0The [facility] CenterComment on above:Performed By: #### FT3, TSH, CMP #### [facility] [address] [place] [address] Dr. Emilia MtzAlbumin/Globulin [Mass ratio]1.1 {ratio}NormalThe [facility] CenterComment on above:Performed By: #### FT3, TSH, CMP #### [facility] [address] [place] [address] Dr. Emilia MtzALP [Catalytic activity/Vol]79 U/RCjcfca97-397Xho [facility] CenterComment on above:Performed By: #### FT3, TSH, CMP #### [facility] [address] [address] [address] Emilia Ortiz [Catalytic activity/Vol]16 U/INigmki72-33Pke [facility] CenterComment on above:Performed By: #### FT3, TSH, CMP #### [facility] [address] [address] [address] Emilia Beeon gap [Moles/Vol]11.7 mmol/LNormalVan [facility]ert [facility] Hospital Comment on above:Performed By: #### FT3, TSH, CMP #### [facility] [address] [place] [address] Dr. Emilia Marin [Catalytic activity/Vol]14 U/LCritically coi37-77EizVan Wert County HospitalComment on above:Performed By: #### FT3, TSH, CMP #### [facility] [address] [place] [address] Dr. Emilia MtzBilirubin [Mass/Vol]0.3 mg/dLNormal0.2-1.0[facility] Comment on above:Performed By: #### FT3, TSH, CMP #### [facility] [address] [place] [address] Dr. Emilia MtzCalcium [Mass/Vol]9.3 mg/dLNormal8.5-10.1[facility] Comment on above:Performed By: #### FT3, TSH, CMP #### [facility] [address] [place] [address] Dr. Emilia MtzChloride [Moles/Vol]104 mmol/OCndfxq59-214DnxVan Wert County Hospital Comment on above:Performed By: #### FT3, TSH, CMP #### [facility] [address] [place] [address] Dr. Emilia MtzCO2 [Moles/Vol]26.5 mmol/VAxcjcc71.0-32.0[facility] Comment on above:Performed By: #### FT3, TSH, CMP #### [facility] [address] [place], [place] [address] Dr. Emilia MtzCreatinine [Mass/Vol]0.70 mg/dLNormal0.55-1.02The [facility] CenterComment on above:Performed By: #### FT3, TSH, CMP #### [facility] [address] [address] [address] Emilia MtzGlobulin (S) [Mass/Vol]3.6 g/dLNormCleveland Clinic Union HospitalComment on above:Performed By: #### FT3, TSH, CMP #### [facility] [address] [address] [address] Emilia MtzGlucose [Mass/Vol]90 mg/dSAywtog68-221Eul [facility] Comment on above:Performed By: #### FT3, TSH, CMP #### [facility] [address] [place] [address] Dr. Emilia MtzPotassium [Moles/Vol]4.2 mmol/LNormal3.5-5.1The [facility] Comment on above:Performed By: #### FT3, TSH, CMP #### [facility] [address] [place] [address] Dr. Emilia MtzProtein [Mass/Vol]7.6 g/dLNormal6.4-8.2The [facility] Comment on above:Performed By: #### FT3, TSH, CMP #### [facility] [address] [place] [address] Dr. Emilia MtzSodium [Moles/Vol]138 mmol/YVzocvk526-635Fkb [facility] Comment on above:Performed By: #### FT3, TSH, CMP #### [facility] [address] [place] [address] Dr. Emilia MtzUrea nitrogen [Mass/Vol]15.0 mg/dLNormal6.4-19.3The [facility] CenterComment on above:Performed By: #### FT3, TSH, CMP #### [facility] [address] [place] [address] Dr. Emilia MtzUrea nitrogen/Creatinine [Mass ratio]21.4 mg/mgNoFormerly [facility], [facility] Hospitalevue HospitalComment on above:Performed By: #### FT3, TSH, CMP #### [facility] [address] [place] [address] Dr. Emilia MtzXR ANKLE RT MIN 3 VIEWSon 08-23-9048QW ANKLE RT MIN 3 VIEWSEXAM: XR ANKLE RT MIN 3 VIEWS HISTORY: Pain . Right ankle injury 30 minutes prior to arrival while playing basketball. Twisted ankle and heard a pop and snap. COMPARISON: Right foot x-rays, 07/06/2020. TECHNIQUE: AP, oblique and lateral views of the right ankle. FINDINGS: There are smooth corticated subcentimeter calcific densities adjacent to the tips of the medial malleolus and lateral malleolus favoring remote avulsed fracture fragments. There is a subtle transverse linear lucency through the tip of the distal fibula on the oblique view which may reflect an acute nondisplaced fracture. No other potential acute osseous injury is seen. There is soft tissue swelling overlying the lateral malleolus. IMPRESSION: 1. Suspected subtle nondisplaced transverse fracture through the tip of the distal fibula with soft tissue swelling overlying the lateral malleolus. No other potential acute right ankle findings are seen. 2. Smooth corticated subcentimeter calcific densities adjacent tip of the medial malleolus and distal fibula consistent with remote avulsed fracture fragments. Electronically authenticated by: GEORGE HERNÁNDEZ Date: 2021-12-05 18:11[facility] Vital Signs Date TimeVital SignValuePerforming RmnnrcywzLiqoibbx28-96-5507 17:42-0400Body gkxmow144.02 Neymarjames Jefferyyasmeencheko Work Phone: [facility]10-10-2024 17:42-0400 Body nnlmstwgime64.4 [degF]Lindsey Cates Work Phone: [facility]10-10-2024 17:42-0400 Body .55 kgTiarrasa Jefferycheko Work Phone: [facility]10-10-2024 17:42-0400 Diastolic blood hpttbfez57 mm[Hg]Lindsey Loan Work Phone: [phone] [place], [place] 3776410-10-2024 17:42-0400 Heart rate75 /minLisa Aichholz Work Phone: [phone] [place], [place] 3776410-10-2024 17:42-0400 Respiratory rate18 /minLisa Aichholz Work Phone: [phone] [address]10-10-2024 17:42-0400 SaO2% (BldA) [Mass fraction]95 %Lindsey Aichholz Work Phone: [phone] [address]10-10-2024 17:42-0400 Systolic blood jzjwajxm178 mm[Hg]Lindsey Aichholz Work Phone: [phone] [address]02-20-2023 19:30-0500 Diastolic blood wrxfssfi61 mm[Hg]Lindsey Aichholz Work Phone: [phone] [address]02-20-2023 19:30-0500 Heart rate88 /minLisa Aichholz Work Phone: [phone] [address]02-20-2023 19:30-0500 Respiratory rate16 /minLisa Aichholz Work Phone: [phone]02-20-2023 19:30-0500 SaO2% (BldA) [Mass fraction]99 %Lindsey Aichholz Work Phone: [phone] [address]02-20-2023 19:30-0500 Systolic blood kjawnxrq662 mm[Hg]Lindsey Aichholz Work Phone: [phone] [address]02-20-2023 18:31-0500 Body mdlaqgtavtj87.1 [degF]Lindsey Aichholz Work Phone: [phone]02-20-2023 18:26-0500 Body lkyvwp919.56 cmLisa Aichholz Work Phone: [phone] [address]02-20-2023 18:26-0500 Body goruaq23.3 kgLisa Cates Work Phone: [facility]01-31-2023 16:50-0500 Body fyiush558.56 cmAjesi King Other [employer] Other 260762-45-4557 16:50-0500Body mass index (BMI) [Ratio] 27.19 kg/q5DrhqiGayle King Other [employer] Other 01-31-2023 16:50-0500Body wepmcgobzuf14.9 [degF]Gayle King Other [facility] [employer] Other 890028-45-1979 16:50-0500Body mkalky91.85 kgGayle King Other [employer] Other 160915-43-8827 16:50-0500Respiratory rate18 /minGayle King Other [employer] Other 01-31-2023 16:50-8227JbL6% (BldA) [Mass fraction]98 % Gayle King Other [employer] Other Encounters Encounter DateEncounter TypeCare ProviderFacilityStart: 04-24-2024 End: 88-57-2601Ijkdplfxd department patient visitLi Jefferyyasmeencheko Work Phone: [facility] Work Phone: Start: 11-29-2023 End: 49-17-2242Saryzjyqg department patient visitLISA Jonah CATESWayne Hospitaltart: 11-28-2023 End: 75-81-5913Tfoptjfun department patient visitROBERT W BRENDONWayne Hospitaltart: 09-04-2022 End: 09-41-6096Wqcdmtshk department patient visitLisa Cates Work Phone: [facility] Work Phone: Start: 09-03-2022 End: 86-21-2212xvekiorwmnYQOBHS RODRIGUEZ .Facility:F7Vbsjb: 08-15-2022 End: 17-72-5119nccsnttofwMpkaw Fernando Other [place] [employer] Other Start: 17-84-6915Xhzlat outpatient visit 25 minutes [facility]le [facility] ClydeStart: 08-14-2022 End: 80-35-3233unxiyuvnszRVM LINDSEY LOANFacility:S6Zfggv: 03-21-2022 End: 47-79-1793kwbllcylwpEB JEFFREY PAY .Facility:L0Qazuz: 12-09-2021 End: 29-28-0231Zfbumob encounter procedurePHYSICIAN NO FAMILYSelect Medical [facility]ty [facility]-XRay Gaudencio OrthoStart: 12-05-2021 End: 64-21-7042ylbwszpwxxDW JEFFREY PAY .Facility:C8Ogjou: 08-23-2017 End: 25-79-7535QcrrptfhwbTQKECRN PROVIDERFacility:[facility] Procedures DateProcedureProcedure DetailPerforming ClinicianStart: 65-01-9356Fxntz chest X-rayLisa Gilgeisinger st. luke's hospitalmichelle Work Phone: Start: 53-78-1359R-ray of right anklePHYSICIAN NO FAMILY Plan of Treatment DateCare ActivityDetailAuthorStart: 77-02-0965DqfnznhbnMemorial Health System Start: 56-26-4300EWVM-CoV-2, Influenza & RSV (PCR)SARS-CoV-2, Influenza & RSV (PCR)[facility] SystemPatient EducationSelect Medical Specialty [facility] Work Phone: Patient referralSelect [facility] Specialty [facility] Work Phone: Payers DatePayer CategoryPayerPolicy [id number] [id number] 2.16.840.1.49701[id number] 2.16.840.1.41815[id number] 2.16.840.1.1706[id number] 2.0.1.228307.3.579.2.593 [id number] 1960Private Health [id number] [id number] Social History DateTypeDetailFacilityStart: 04-24-2020 End: 01-92-1587Lkuqshn smoking status NHISNever smoked tobacco (finding) [facility]: 13-29-2506Een [facility] Assigned At BirthSex Assigned At met[facility]TecA[place] [employer] Other Evaluation note 08-15-2022 Note Date & GzewZdvpElvjbaso92-09-7353 Evaluation note* Encounter Date Diagnosis Assessment Notes Treatment Notes Treatment Clinical Notes Jul, Sore throat (ICD-10 - J02.9) Jul,Strep pharyngitis (ICD-10 - J02.0) Advised mother that strep test was positive. Reviewed allergies and recent antibiotic use. Mother reports Amoxicillin does not usually work, asked for rx of Augmentin instead. Instructed mother to give antibiotic as prescribed, with food and plenty of water, complete entire course even if feeling better. Supportive care as directed. Push fluids and rest, Tylenol or Motrin as needed for fever or discomfort, warm salt water gargles. Patient's symptoms should improve in the next 48 hours, eval by PCP or UC if symptoms have not improved with treatment. Discussed in depth warning symptoms that require immediate eval. Change out tooth brush after being on antibiotic for 2-3 days. Patient's parent verbalizes understanding and is agreeable to treatment plan [employer] Other Evaluation note Note Date & TypeNoteFacilityEvaluation noteNo assessment information available [facility] Work Phone: History general Narrative - Reported Note Date & TypeNoteFacilityHistory general Narrative - Reported* Type Description Date Medical History seasonal allergies [employer] Other Hospital Discharge instructions Note Date & TypeNoteFacilityHospital Discharge instructions Additional Instructions Return for new or worsening symptoms Follow-up with family doctor, neurologist and cardiologistSelect Medical [facility]ty [facility] Work Phone: Hospital Discharge instructions Note Date & TypeNoteFacilityHospital Discharge instructions Additional Instructions Take the azithromycin or Z-Genaro as prescribed to completed You can use the albuterol inhaler 2 puffs every 4-6 hours as wheezing cough shortness of breath He can continue owsv-nvc-kecimvb cough and cold medication Increase oral fluids Follow-up with your family doctor Return to the ER for worsening shortness of breath high fever severe chest pain or any other concernsSelect Medical [facility]ty [facility] Work Phone: Summary Purpose Family History No Family History Records FoundNo Family History Records FoundNo Family History Records FoundNo Family History Records Found Advance Directives No Advanced Directives Records Found Advance Directive Response Recorded Date/ Time Advance Directives No May 4:53pm Advance Directive Response Recorded Date/ Time Advance Directives No May 3:53pm Chief Complaint and Reason for Visit Chief Complaint M25.571 Chief Complaint Syncopal episode, Se izure Chief Complaint chest tightness Additional Source Comments INFORMATION SOURCE (unrecogn ized section and content) DATE CREATED AUTHOR 01/07/2018 [facility] DATE CREATED AUTHOR AUTHOR'S ORGANIZ ATION 11/23/2022 [facility] DATE CREATED AUTHOR AUTHOR'S ORGANIZ ATION 12/01/2023 [facility] DATE CREATED AUTHOR AUTHOR'S ORGANIZ ATION 05/08/2024 The [facility] Care Teams (unrecognized sec tion and content) Team Status: Inactive Member Role Status Dates PHYSICIAN NO FAMILY Primary Care Provider Active Yong Spencer ProviderActive Team Status: Active Member Role Status Dates PHYSICIAN NO FAMILY Primary Care Provider Active Team Status: Inactive Member Role Status Dates Lindsey Cates Primary Care Provider Active Panchito Galvin ProviderActive Team Status: Active Member Role Status Dates Lindsey Cates Primary Care Provider Active Team Status: Inactive Member Role Status Dates Lindsey Cates Primary Care Provider Active Sta rt: April 24, 2024 End: April 24, 2024Luzma Murillo ProviderActiveStart: April 24, 2024 End: April 24, 2024 Goals (unrecognized section and content) Goals may be documented in a n alternate sectionGoals may be documented in an alternate sectionNo InformationGoals may be documented in an alternate section REASON FOR VISIT (unrecogniz ed section and content) SORE THROAT, SINUS CONGESTIO N FOR RECORDS PERTAINING TO PATIENTS WHO ARE OR HAVE BEEN ENROLLED IN A CHEMICAL DEPENDENCY/SUBSTANCEABUSE PROGRAM, SOME INFORMATION MAY BE OMITTED. This clinical summary was aggregated from multiple sources. Caution should be exercised in using it in the provision of clinical care. This summary normalizes information from multiple sources, and as a consequence, information in this document may materially change the coding, format and clinical context of patient data. In addition, data may be omitted in some cases. CLINICAL DECISIONS SHOULD BE BASED ON THE PRIMARY CLINICAL RECORDS. [facility]. provides no warranty or guarantee of the accuracy or completeness of information in this document.
--- OUTSIDE RECORDS SUMMARY | 2025-05-21 12:20 | XMS_ITS | Patient Health Record ---
Author Organization [employer] [facility]om[facility] Exchangeic es Address [address] [place] [address] Care Team Providers Care Cash Grain Grower Name Role Phone Alie Mcgrath Primary Care Provider Dr. Riky Griffin Unavailable [phone] SULAIMAN PAGAN Unavailable Unavailable Reason For Referral No Information Plan Of Treatment No Information Insurance Providers Payer Name Payer Address Payer Phone Subscriber Number Group Number Insured Name Patient Relationship to Insured Coverage Start Date Coverage End Date Dental UHC [place] Medicaid [address] [place] [phone] [id number] [facility] Self - patient is the insured 3 [facility] CHP-termed [address] [place] [address] [id number], ELIZABETHSelf - patient is the insured 103/[employer] [facility] [address] [place] [address] [id number], ELIZABETHSelf - patient is the insured 2022
--- OUTSIDE RECORDS SUMMARY | 2025-05-21 12:20 | XMS_ITS | Clinical Summary ---
Author Organization [facility] Address [address] [place] [address] Care Team Providers Care Front Office Clerk Name Role Phone Ole Mao MD Primary Care Provider Allergies No known active allergies Medications MedicationSigDispense QuantityRefillsLast FilledStart DateEnd DateStatus azithromycin (ZITHROMAX) 500 mg tablet Take 500 mg by mouth once daily.Active azelastine (ASTELIN,ASTEPRO) 0.1% nasal spray Use 1 [place] in each nostril twice daily.Active Active Problems ProblemNoted DateDiagnosed DateChronic edkjiiofghj47/05/2018 Social History Tobacco UseTypesPacks/DayYears UsedDateSmoking Tobacco: NeverSmokeless Tobacco: NeverArea Deprivation IndexAnswerDate RecordedNational Score (1-100), lower number is lower riskNot on file06/24/2020State Score (1-10), lower number is lower riskNot on file06/24/2020Data from: https://www.neighborhoodatlas.medicine.[facility].edu/. Last address used for calculationNot on file06/24/2020CommentsNoSex and Gender Information ValueDate RecordedSex Assigned at BirthNot on fileLegal SulEaatmu29/28/2018 3:20 PM ESTGender IdentityNot on fileSexual OrientationNot on file Last Filed Vital Signs Vital SignReadingTime TakenCommentsBlood Mxeqosdx529/6606/02/2020 1:29 PM EST Bhlzr6229 1:29 PM XPJVzxhrqtisjp45.8 ??C (98.2 ??F)06/02/2020 1:29 PM ESTRespiratory Wqmo7417/ 1:29 PM ESTOxygen Pvzrdwoasb97%06/02/2020 1:29 PM ESTInhaled Oxygen Concentration--Bcpxsc62.4 kg (188 lb 3.2 oz)06/02/2020 1:29 PM DNTTqomxa987 cm (5' 4.17 )06/02/2020 1:29 PM ESTBody Mass Index32.13 06/02/2020 1:29 PM EST Plan of Treatment Health MaintenanceDue DateLast DoneCommentsPeds To Adult Transition Initial Pcenxqepoe29/16/2017Peds To Adult Transition Annual Eqziuljnrs63/16/2019HPV Vaccine (1 - 3-dose series)2020Meningococcal B Vaccine (1 of 2 - Standard) 2021nxiety Wjbbtwjse11/16/2023hlamydia Screening (18-)2023 Depression Kwcaojmqj33/16/2023C (Gonorrhea) Screening (18-24)2023HIV Pjgyotvzs59/16/2023Hepatitis C Eozudvxnp93/16/2023DTaP,Tdap,Td Vaccine (1 - Tdap)2024Hepatitis B Vaccine (1 of 3 - 19+ 3-dose series)2024ovid- 19 Vaccine (1 - 2024- season)2025Influenza Vaccine (#1)2025 Insurance Care Teams Team MemberRelationshipSpecialtyStart DateEnd Date Ole Mao MD [address] [place] [address] [facility]
--- OUTSIDE RECORDS SUMMARY | 2025-05-21 12:20 | XMS_ITS | Clinical Summary ---
Author Organization [id number] [address] [place] [address] Care Team Providers Care Loop Sewer Name Role Phone Lindsey Cates APRN-DEONNA Primary Care Provider Allergies No known active allergies Medications No known medications Social History Tobacco UseTypesPacks/DayYears UsedDateSmoking Tobacco: NeverSmokeless Tobacco: NeverChildcareAnswerDate RfdmgqymIxkybebmiKdjiadp92/06/2019EmploymentAnswerDate JxjmviqmXqfsxmrtekCnyxsmr49/06/2019Purpose - LifeAnswerDate RecordedPurpose and direction in tfynGomeiiu11/11/2021CommentsUnknownSex and Gender InformationValueDate RecordedSex Assigned at BirthNot on fileLegal SexFemale 06/01/2017 3:42 PM ESTGender IdentityNot on fileSexual OrientationNot on file Last Filed Vital Signs Vital SignReadingTime TakenCommentsBlood Hhjngnps207/5805 12:04 AM EDT Alwbh151411/29/2023 12:04 AM ZZTAoailhjsdnc90.4 ??C (97.6 ??F)11/28/2023 9:34 PM EDTRespiratory Thdi682511/29/2023 12:04 AM EDTOxygen Ffexsuzipf65%11/29/2023 12:04 AM EDTInhaled Oxygen Concentration--Zrnyse45.1 kg (137 lb)11/28/2023 9:34 PM EDT Ibhqfp435 cm (5' 3 )11/28/2023 9:34 PM EDTBody Mass Index24.27011/28/2023 9:34 PM EDT Plan of Treatment Health MaintenanceDue DateLast DoneCommentsDepression Hmaqozwah82/16/2017Tobacco Sqlaflxyz98/16/2017DTaP,Tdap and Td Vaccines (1 - Tdap)2024dult BMI Obynzafyf45/Influenza Xsebkag3903/16/2025 Medical Devices Not on file Insurance Care Teams Team MemberRelationshipSpecialtyStart DateEnd Date Lindsey Cates, STONER HAND-ASSET MANAGEMENT ANALYST PCP - GeneralNurse Practitioner11/28/23
[2025-05-21 12:37] LABS: Cast Seen? NONE SEEN #/LPF (NONE SEEN); Crystals Seen? None Seen #/HPF (None Seen); Urine Culture Indicated YES-FRMC
--- NOTE | 2025-05-21 13:12 | ED.GENADUL1 ---
HPI HPI - General Adult General Chief complaint: Urogenital-Female Stated complaint: BLOOD IN URINE Time Seen by Provider: 05/21/25 11:50 Source: patient Mode of arrival: walk-in Limitations: no limitations History of Present Illness HPI narrative: The patient is a 20 years old female coming to the ER to be evaluated for blood in urine after she was already evaluated in urgent care yesterday diagnosed with UTI and was prescribed Macrobid but did not pick it up from the pharmacy yet. She mentioned that she noted today that she have some blood in urine although she denies any vaginal discharge any suprapubic pain. Or any back pain or fever or chills Related Data Home Medications ?Medication ?Instructions ?Recorded ?Confirmed nitrofurantoin 100 mg PO Q12H 05/21/25 05/21/25 monohydrate/macrocrystals 100 mg capsule Previous Rx's ?Medication ?Instructions ?Recorded phenazopyridine 200 mg tablet 200 mg PO Q8H PRN pain 6 doses #6 05/21/25 (Pyridium) tabs Allergies Allergy/AdvReac Type Severity Reaction Status Date / Time No Known Drug Allergies Allergy Verified 05/21/25 11:46 Review of Systems ROS Status of ROS 10 or more systems reviewed and unremarkable except as noted in history and below PFSH PFSH Social History Little interest or pleasure in doing things: not at all Feeling down, depressed, or hopeless: not at all Exam Narrative Exam Narrative: Nurses notes and vital signs reviewed and patient is not hypoxic. General: Well-appearing and in no apparent distress. Skin: Warm, dry, no pallor noted. No rash. Head: Normocephalic, atraumatic. Neck: Supple, non-tender. Cardiovascular: Regular Rate and Rhythm without murmur, gallop or rub. Respiratory: No accessory muscle use or respiratory distress. Lungs are clear to auscultation, no wheezing, rales or rhonchi Chest Wall: no tenderness Back: No midline thoracic or lumbar vertebral tenderness. No CVA tenderness Musculoskeletal: normal ROM, no calf or popliteal tenderness, no lower extremity edema/swelling GI: Abdomen is soft, non-distended. Normal bowel sounds. No masses appreciated. No tenderness to palpation. No rebound, guarding, or rigidity noted. Neurological: A&O x4. No cranial nerve dysfunction observed. No truncal ataxia. Moves all extremities. Sensation intact. Psychiatric: Cooperative and interactive. Normal mood and affect. Constitutional Vital Signs, click to edit/add: Last Vital Signs Temp 98.2 F 05/21/25 11:46 Pulse 93 H 05/21/25 11:46 Resp 16 05/21/25 11:46 BP 118/78 05/21/25 11:46 Pulse Ox 99 05/21/25 11:46 O2 Del Method Room Air 05/21/25 11:46 Course Vital Signs Vital signs: Vital Signs Temperature 98.2 F 05/21/25 11:46 Pulse Rate 93 H 05/21/25 11:46 Respiratory Rate 16 05/21/25 11:46 Blood Pressure 118/78 05/21/25 11:46 Pulse Oximetry 99 05/21/25 11:46 Oxygen Delivery Method Room Air 05/21/25 11:46 Temperature 98.2 F 05/21/25 11:46 Pulse Rate 93 H 05/21/25 11:46 Respiratory Rate 16 05/21/25 11:46 Blood Pressure 118/78 05/21/25 11:46 Pulse Oximetry 99 05/21/25 11:46 Oxygen Delivery Method Room Air 05/21/25 11:46 Medical Decision Making MDM Narrative Medical decision making narrative: The patient abdomen examination is benign and her presentation right now could be secondary to hematuria from UTI Urinalysis confirms the diagnosis of UTI and the test is negative Right now the patient was discharged with ferritin as well as to go grain picker her Macrobid and start taking it She was instructed about the monitoring at home for fever or any pain especially back pain The patient to follow-up with the primary care within 2 to 3 days and to come back to the ER in case of any worsening of the current symptoms or any new symptoms or concerns Lab Data Labs: Lab Results 05/21/25 Range/Units 11:55 Urine Color Lt. yellow (YELLOW) Urine Clarity Clear (CLEAR) Urine pH 6.5 (5.0-9.0) Ur Specific [place] <=1.005 A (1.005-1.025) Urine Protein 100 A (NEG/TRACE) mg/dL Urine Glucose (UA) Negative (NEGATIVE) mg/dL Urine Ketones Negative (NEGATIVE) mg/dL Urine Occult Blood Large A (NEGATIVE) Urine Nitrite Negative (NEGATIVE) Urine Bilirubin Negative (NEGATIVE) Urine Urobilinogen 0.2 (0.2-1.0) EU/dL Ur Leukocyte Esterase Large A (NEGATIVE) Urine RBC >100 A (0-2) #/HPF Urine WBC 50-75 A (NONE SEEN) #/HPF Ur Squamous Epith Cells Rare (NONE/RARE) #/LPF Urine Crystals None seen (None Seen) #/HPF Urine Bacteria Trace A (NONE SEEN) #/HPF Urine Casts None seen (NONE SEEN) #/LPF Urine Mucus None seen (NONE SEEN) Ur Culture Indicated? Yes-[facility] [place] Urine HCG, Qual Negative (NEGATIVE) Discharge Plan Discharge Chief Complaint: Urogenital-Female Clinical Impression: Urinary tract infection, Hematuria Patient Disposition: Home, Self-Care Time of Disposition Decision: 13:14 Condition: Good Mode of Transportation: Private Vehicle Prescriptions / Home Meds: New phenazopyridine [Pyridium] 200 mg tablet 200 mg PO Q8H PRN (Reason: pain) Qty: 6 0RF No Action nitrofurantoin monohyd/m-cryst 100 mg capsule 100 mg PO Q12H Print Language: Irish Instructions: Urinary Tract Infection in Women (DC), Hematuria (ED) Referrals: Lindsey Cates NP [Primary Care Provider, Family Practice] - 1 week Discharge Date/Time: 05/21/25 13:20
== END 2025-05-21 13:20 | disposition home or self-care (01) ==
PROVIDERS: Emergency Provider Emergency Medicine; PCP Nurse Practitioner
DX: N39.0 Urinary tract infection, site not specified (principal); R31.9 Hematuria, unspecified
CPT/HCPCS: 81001; 84703; 87086; 87088; 87186; 99283